=== PATIENT | male | born 1955 | race Caucasian/White ===

== ENCOUNTER → 2018-09-06 | Outpatient (CLI) | payer MEDICAID | END | disposition home or self-care (01) | LOC: ROC 07:44 | PROVIDERS: ATTEND Radiology Radiation Oncology | DX: C61 Malignant neoplasm of prostate (principal); M51.84 Other intervertebral disc disorders, thoracic region; Z80.8 Family history of malignant neoplasm of other organs or systems | CPT/HCPCS: 99214; G0463 ==

== ENCOUNTER → 2018-09-06 | Outpatient (CLI) | payer MEDICAID ==
[~2018-09-06] MED LIST: GADOBUTROL 10 MMOL/10 ML PFS ONE
== END | disposition home or self-care (01) ==
LOC: CFH 09:22
PROVIDERS: ATTEND Radiology Radiation Oncology
DX: C61 Malignant neoplasm of prostate (principal); C79.51 Secondary malignant neoplasm of bone
CPT/HCPCS: 72157; A9585